=== PATIENT | male | born 1960 | race Caucasian/White ===

== ENCOUNTER 2024-06-01 12:30 | Emergency (ER) | payer OTHER ==
[~2024-06-01] VITALS: Ht 172.7 cm; Wt 79.5 kg
[2024-06-01] MEDS ORDERED: ROSU20TA73 PO (12:49)
[2024-06-01] MEDS ORDERED: BICT1TAB PO (12:49)
[2024-06-01] MEDS ORDERED: LURA60TA4 PO (12:49)
[2024-06-01] MEDS ORDERED: AMLO2.5T29 PO (12:49)
[2024-06-01] MEDS ORDERED: DORA100T PO (12:49)
[2024-06-01] MEDS ORDERED: LITH300C3 PO (12:49)
[2024-06-01] MEDS ORDERED: LISI20TA24 PO (12:49)
[2024-06-01 12:52] VITALS: TEMP 98.5
[2024-06-01 13:41] LABS: BASOPHILS % (AUTO) 0.8 % (0.0-2.0); EOSINOPHILS % (AUTO) 2.1 % (1.0-6.0); HEMATOCRIT 42.3 % (41-53); HEMOGLOBIN 14.1 g/dL (13.5-17.5); LYMPHOCYTES # (AUTO) 2.2 K/uL (1.0-4.8); LYMPHOCYTES % (AUTO) 33.2 % (22.0-44.0); MEAN CORPUSCULAR HEMOGLOBIN 29.6 pg (26.0-34.0); MEAN CORPUSCULAR HGB CONC 33.4 G/dL (31.0-37.0); MEAN CORPUSCULAR VOLUME 89 fL (80-100); MONOCYTES # (AUTO) 0.4 K/uL (0.1-1.0); MONOCYTES % (AUTO) 6.8 % (2.0-9.0); NEUTROPHILS # (AUTO) 3.7 K/uL (1.8-7.7); NEUTROPHILS % (AUTO) 57.1 % (40.0-70.0); PLATELET COUNT (AUTO) 280 K/uL (150-450); RED BLOOD CELL COUNT(AUTO) 4.77 MIL/uL (4.50-5.90); RED CELL DISTRIBUTION WIDTH 13.6 % (11.5-14.5); WHITE BLOOD COUNT (AUTO) 6.5 K/uL (4.5-11.0)
[2024-06-01 13:49] LABS: PROTHROMBIN TIME 10.2 SEC (9.4-11.6)
[2024-06-01 13:51] LABS: ANION GAP 11 mmol/L (8-16); CALCIUM, TOTAL 9.1 mg/dL (8.8-10.5); CARBON DIOXIDE 25 mmol/L (22-29); CHLORIDE 103 mmol/L (98-107); CREATININE 0.87 mg/dL (0.60-1.30); GLOMERULAR FILTR. RATE CALC > 60 mL/min (>60); GLUCOSE,RANDOM 96 mg/dL (70-110); POTASSIUM 3.5 mmol/L (3.5-5.1); SODIUM SERUM 139 mmol/L (136-145); UREA NITROGEN, BLOOD 7 mg/dL (7-18)
[2024-06-01 13:56] LABS: ALANINE AMINOTRANSFERASE 69 U/L (12-78); ALBUMIN 3.8 g/dL (3.4-5.0); ALKALINE PHOSPHATASE 64 U/L (46-116); ASPARTATE AMINOTRANSFERASE 45 U/L (15-37); BILIRUBIN,TOTAL 0.3 mg/dL (0.1-1.0)
[2024-06-01 13:58] LABS: LITHIUM < 0.20 mmol/L (0.60-1.20)
[2024-06-01 15:19] VITALS: BP 124/80; PULSE 75; RESP 16
[2024-06-02 14:17] LABS: ABSOLUTE CD4 COUNT 612 /uL (359-1519); ABSOLUTE CD8 SUPPRESSOR 871 /uL (109-897); BASOPHILS %-(REF. LAB) 1 % (Not Estab.); EOSINOPHILS %-(REF. LAB) 2 % (Not Estab.); EOSINOPHILS ABSOLUTE(REF. LAB) 0.1 x10E3/uL (0.0-0.4); IMMATR GRANULOCYT %-(REF. LAB) 1 % (Not Estab.); LYMPHOCYTES %-(REF. LAB) 35 % (Not Estab.); MEAN CELL HEMOGLOB-(REF. LAB) 30.3 pg (26.6-33.0); MEAN CELL HGB CONC-(REF. LAB) 33.4 g/dL (31.5-35.7); MEAN CELL VOLUME-(REF. LAB) 91 fL (79-97); MONOCYTES %-(REF. LAB) 6 % (Not Estab.); MONOCYTES ABSOLUTE(REF. LAB) 0.4 x10E3/uL (0.1-0.9); NEUTOPHILS %-(REF. LAB) 55 % (Not Estab.); PERCENT CD4 POS.LYMPH. 27.8 % (30.8-58.5); PERCENT CD8 POS. LYMPH. 39.6 % (12.0-35.5); REDC DISTRIB. WIDTH-(REF. LAB) 13.1 % (11.6-15.4)
== END 2024-06-01 15:19 ==
LOC: EMS 12:30
DX: Z01.812 Encounter for preprocedural laboratory examination (principal); I10 Essential (primary) hypertension; Z79.899 Other long term (current) drug therapy
CPT/HCPCS: 80048; 80076; 80178; 85025; 85610; 86360; 99283